=== PATIENT | female | born 2000 ===

== ENCOUNTER 2023-05-19 08:30 | Inpatient (IN) | payer OTHER ==
[~2023-05-19] VITALS: Ht 157.5 cm; Wt 67.1 kg
== END 2023-06-01 14:11 | disposition home or self-care (01) | DRG 627 ==
LOC: SURH 05-31 06:30 → O/R 05-31 06:30 → SURG 05-31 08:30 → SURH 05-31 13:45
PROVIDERS: ADMIT Otolaryngology; ATTEND Otolaryngology
PROC: 0GTH0ZZ Resection of Right Thyroid Gland Lobe, Open Approach (ICD-10-PCS; principal; 2023-05-31 10:30)
DX: C73 Malignant neoplasm of thyroid gland (principal); Z20.822 Contact with and (suspected) exposure to COVID-19

== ENCOUNTER 2023-07-05 13:26 | Outpatient (CLI) | payer OTHER | END 2023-07-05 13:30 | disposition home or self-care (01) | LOC: SONOGRAMA 13:26 | PROVIDERS: ATTEND Pathology Anatomic Pathology & Clinical Pathology | DX: D36.0 Benign neoplasm of lymph nodes (principal); R59.0 Localized enlarged lymph nodes ==

== ENCOUNTER 2023-07-23 10:00 | Inpatient (IN) | payer OTHER ==
[~2023-07-23] VITALS: Ht 157.5 cm; Wt 64.4 kg
[2023-07-23 11:34] LABS: HEMATOCRIT 39.8 % (36.0-45.00); HEMOGLOBIN 13.3 g/dL (12.0-15.00); MEAN CELL VOLUME 88.4 fL (80.00-100.00); MEAN CORPUSCULAR HEMOGLOBIN 29.7 pg (27.00-32.0); MEAN CORPUSCULAR HGB CONC 33.6 g/dl (32.0-36.0); PLATELET COUNT 271 K/uL (150-450); RED CELL DISTRIBUTION WIDTH 12.6 % (11.5-14.5)
[2023-07-23 11:37] LABS: URINE APPEARANCE Clear; URINE BILIRRUBIN Negative (NEGATIVE); URINE BLOOD Negative; URINE COLOR Yellow; URINE GLUCOSE Negative (NEGATIVE); URINE LEUKOCYTE Negative; URINE NITRATE Negative; URINE PROTEIN Negative (NEGATIVE)
[2023-07-23 11:46] LABS: URINE BACTERIA 1244.7 uL (0.0-1933); URINE EPITHELIAL CELLS 84.3 uL (0.0-38.8); URINE WBC 6.4 uL (0.0-23.2)
[2023-07-23 12:01] LABS: INR 1.09; PARTIAL THROMBOPLASTIN TIME 29.6 SECONDS (22.0-34.0); PROTHROMBIN TIME 11.4 SECONDS (9.0-11.5)
[2023-07-23 12:04] LABS: ALBUMIN 4.1 gm/dL (3.4-5.0); BILIRUBIN TOTAL 1.15 mg/dL (0.3-1.2); CALCIUM 9.1 mg/dL (8.5-10.1); CREATININE SERUM 0.7 mg/dL (0.55-1.02); GFR 101.95; GLOBULINA 3.3 G/DL (2.4-3.5); POTASSIUM 4.15 mEq/L (3.5-5.1); TOTAL PROTEIN 7.4 gm/dL (6.4-8.2)
== END 2023-07-27 12:01 | disposition home or self-care (01) | DRG 627 ==
LOC: SURG 07-26 10:00 → O/R 07-26 15:10 → SURG 07-26 17:45 → SURH 07-26 18:21
PROVIDERS: ADMIT Otolaryngology; ATTEND Otolaryngology
PROC: 0GTG0ZZ Resection of Left Thyroid Gland Lobe, Open Approach (ICD-10-PCS; principal; 2023-07-26 17:45)
DX: C73 Malignant neoplasm of thyroid gland (principal); Z20.822 Contact with and (suspected) exposure to COVID-19